=== PATIENT | female | born 1990 | race Caucasian/White ===

== ENCOUNTER 2016-09-13 05:43 | Emergency (ER) | payer SELFPAY ==
[~2016-09-13] VITALS: Ht 160 cm; Wt 90.9 kg
[~2016-09-13 05:43] MED LIST: ASCORBIC ACID500 M3 PO; ATARAX10 MG PO; AUGMENTIN875 MG PO; CLARITIN10 M3 PO; NASALCROM NASAL13 ML BOTH NARES; PEN-VEE K,VEET500 MG PO; PERCOCET 5/31 TABLET PO; PRENATAL TABLE1 EAC3 PO; PYRIDOXINE HCL25 MG PO; SLEEP AID25 M1 PO; TYLENOL EXTRA500 MG PO; VIGAMOX 0.60 DROP/3 LEFT EYE; ZANTAC150 MG PO
[2016-09-13 07:01] LABS: HEMATOCRIT 42.1 % (36.0-46.0); MCH 28.9 PG (29.0-34.0); MCHC 32.8 G/DL (30.0-36.0); MCV 88.3 FL (83-99); MEAN PLAT.VOLUME 10.3 uM^3 (9.5-12.4); PLATELET COUNT 320 K/uL (156-360); RBC DIS.WIDTH-CV 11.9 % (11.8-14.6); RBC DIS.WIDTH-SD 38.5 % (39-53); RED BLOOD COUNT 4.77 M/uL (3.80-5.20); WHITE BLOOD COUNT 9.8 K/uL (4.1-10.2)
[2016-09-13 07:31] LABS: ANION GAP 7 MEQ/L (2-14); CHLORIDE 106 MEQ/L (99-109); POTASSIUM 4.3 MEQ/L (3.7-5.4); SAMPLE HEMOLYSIS CHECK 0; SAMPLE ICTERIC CHECK 0; SAMPLE LIPEMIA CHECK 0; SODIUM 140 MEQ/L (136-147); TOTAL BILIRUBIN 0.5 MG/DL (0.0-1.0)
[2016-09-13 07:37] LABS: ALKALINE PHOSPHATASE 85 IU/L (3-129); GFR ESTIMATE (CALCULATED) > 59 mL/min/; GLUCOSE 130 mg/dL (70-99); LIPASE 17 U/L (1.0-51.0); UREA NITROGEN (BUN) 10 mg/dL (9-23)
[2016-09-13 07:40] LABS: QUANTITATIVE HCG < 4.0 MIU/ML
[2016-09-13 08:04] LABS: ADD MIUA? YES; BILIRUBIN NEGATIVE; BLOOD LARGE; COLOR YELLOW ((YELLOW)); GLUCOSE (STRIP) NEGATIVE; KETONES NEGATIVE; LEUKOCYTES TRACE; NITRITE NEGATIVE; PROTEIN (STRIP) NEGATIVE; SPECIFIC GRAVITY 1.024 (1.000-1.030); UROBILINOGEN 0.2 MG/DL (0.2-1.0)
[2016-09-13 08:15] LABS: BACTERIA NONE SEEN /HPF; EPITHELIAL CELLS RARE /HPF; MUCUS TRACE /LPF; RED BLOOD CELLS 0-5 /HPF (0-5)
[2016-09-13] MEDS ORDERED: KEFLEX500 MG PO (08:27)
[2016-09-13] MEDS ORDERED: ZOFRAN ODT4 MG PO (08:36)
[2016-09-13 08:42] LABS: INFLUENZA A VIRAL ANTIGEN NEGATIVE; INFLUENZA B VIRAL ANTIGEN NEGATIVE
[2016-09-13 08:51] VITALS: BP 121/99
== END 2016-09-13 08:52 | disposition home or self-care (01) ==
LOC: EME 05:43
PROVIDERS: Physician Assistant Medical
DX: B34.9 Viral infection, unspecified (principal); R11.10 Vomiting, unspecified; R19.7 Diarrhea, unspecified
CPT/HCPCS: 80053; 81003; 83690; 84702; 85027; 87502; 99281; 99284; J2405; J7030; Q0177

== ENCOUNTER 2016-12-20 20:05 | Emergency (ER) | payer SELFPAY ==
[~2016-12-20] VITALS: Ht 160 cm; Wt 105.3 kg
[~2016-12-20 20:05] MED LIST changes: +KEFLEX500 MG PO; +ZOFRAN ODT4 MG PO
[2016-12-20 20:42] LABS: HEMATOCRIT 40.3 % (36.0-46.0); MCH 28.5 PG (29.0-34.0); MCHC 33.3 G/DL (30.0-36.0); MCV 85.7 FL (83-99); MEAN PLAT.VOLUME 10.1 uM^3 (9.5-12.4); PLATELET COUNT 366 K/uL (156-360); RBC DIS.WIDTH-CV 12.2 % (11.8-14.6); RBC DIS.WIDTH-SD 38.6 % (39-53); WHITE BLOOD COUNT 10.8 K/uL (4.1-10.2)
[2016-12-20 20:45] LABS: ADD MIUA? NO; BILIRUBIN NEGATIVE; BLOOD NEGATIVE; COLOR YELLOW ((YELLOW)); GLUCOSE (STRIP) NEGATIVE; KETONES NEGATIVE; LEUKOCYTES NEGATIVE; NITRITE NEGATIVE; PROTEIN (STRIP) NEGATIVE; UCUL ADDED? NO; UROBILINOGEN 0.2 MG/DL (0.2-1.0)
[2016-12-20 20:51] LABS: CHLORIDE 105 mEq/L (99-109); POTASSIUM 4.3 mEq/L (3.7-5.4); SODIUM 139 mEq/L (136-147)
[2016-12-20 20:54] LABS: GLUCOSE 121 mg/dL (70-99)
[2016-12-20 20:55] LABS: ANION GAP 9 MEQ/L (2-14); TOTAL BILIRUBIN 0.2 mg/dL (0.0-1.0)
[2016-12-20 20:57] LABS: ALKALINE PHOSPHATASE 100 IU/L (3-129); GFR ESTIMATE (CALCULATED) > 59 mL/min/
[2016-12-20 20:58] LABS: UREA NITROGEN (BUN) 11 mg/dL (9-23)
[2016-12-20 21:08] LABS: QUANTITATIVE HCG < 4.0 MIU/ML
[2016-12-20] MEDS ORDERED: ZOFRAN ODT4 MG PO (23:15)
[2016-12-20 23:30] VITALS: BP 164/113
== END 2016-12-20 23:31 | disposition home or self-care (01) ==
LOC: EME 20:05
PROVIDERS: Nurse Practitioner Family
DX: R10.9 Unspecified abdominal pain (principal); R11.2 Nausea with vomiting, unspecified; R19.7 Diarrhea, unspecified
CPT/HCPCS: 76856; 80053; 81003; 84702; 85027; 99281; 99284